=== PATIENT | female | born 1960 | race Caucasian/White ===

== ENCOUNTER 2022-06-04 09:49 | Emergency (ER) | payer OTHER ==
[2022-06-04] MEDS ORDERED: Meclizine HCl 25 MG TAB ONE ×2 (10:24→10:55)
[2022-06-04 10:32] LABS: Bilirubin Negative (Negative); Blood, Urine Negative (Negative); Clarity Slightly Cloudy (Clear); Glucose, Urine (Dipstick) Negative (Negative); Ketone, Urine Negative (Negative); Leukocyte Trace (Negative); Nitrite Positive (Negative); Protein, Urine (Dipstick) Negative (Neg-Trace); Urobilinogen 0.2 mg/dL (Less than 2); pH, Urine 5.5 (5.0-9.0)
[2022-06-04 10:33] LABS: RBC/HPF 0-3 HPF (0-3)
[2022-06-04 10:34] LABS: Bacteria/HPF 4+ HPF (None Seen)
== END 2022-06-04 11:25 | disposition home or self-care (01) ==
LOC: MADERS 09:49
DX: N39.0 Urinary tract infection, site not specified (principal); R42 Dizziness and giddiness
CPT/HCPCS: 70450; 81003; 81015; 93005